=== PATIENT | female | born 1995 ===

== ENCOUNTER 2022-07-28 12:05 | Emergency (ER) | payer OTHER ==
[2022-07-28 12:22] LABS: BASOPHILS % (AUTO) 0.4 %; EOSINOPHILS % (AUTO) 0.3 %; HCT - HEMATOCRIT 41.7 % (37.0-47.0); HGB - HEMOGLOBIN 13.5 g/dL (12.0-16.0); LYMPHOCYTES # (AUTO) 2.1 10^3/uL (1.5-3.5); LYMPHOCYTES % (AUTO) 30.8 %; MEAN CORPUSCULAR HEMOGLOBIN 29.7 pg (27.0-31.0); MEAN CORPUSCULAR HGB CONC 32.4 g/dL (32.0-36.0); MEAN CORPUSCULAR VOLUME 91.9 fL (81.0-99.0); MEAN PLATELET VOLUME 10.5 fL (7.9-10.8); MONOCYTES # (AUTO) 0.5 10^3/uL (0.0-1.0); MONOCYTES % (AUTO) 7.2 %; NEUTROPHILS # (AUTO) 4.2 10^3/uL (1.5-6.6); NEUTROPHILS % (AUTO) 61.2 %; PLT - PLATELET COUNT 236 10^3/uL (130-450); RED BLOOD COUNT 4.54 10^6/uL (4.20-5.40); RED CELL DISTRIBUTION WIDTH 11.7 % (12.0-15.0); WHITE BLOOD COUNT 6.9 x10^3/uL (4.8-10.8)
[2022-07-28 12:27] LABS: BILIRUBIN,URINE NEGATIVE (NEGATIVE); GLUCOSE, URINE (UA) NEGATIVE (NEGATIVE); KETONES,URINE (UA) NEGATIVE (NEGATIVE); LEUKOCYTE ESTERASE, URINE NEGATIVE (NEGATIVE); NITRITE,URINE NEGATIVE (NEGATIVE); OCCULT BLOOD,URINE NEGATIVE (NEGATIVE); PROTEIN,URINE NEGATIVE (NEGATIVE); UROBILINOGEN,URINE 0.2 (NORMAL) E.U./dL (NORMAL)
[2022-07-28 12:29] LABS: CLARITY,URINE CLEAR (CLEAR); HCG UR QUAL NEGATIVE
[2022-07-28 12:43] LABS: ALBUMIN 4.7 g/dL (3.2-5.5); ALBUMIN/GLOBULIN RATIO 1.6 (1.0-2.2); BILIRUBIN,TOTAL 0.6 mg/dL (0.2-1.0); CALCIUM 9.6 mg/dL (8.5-10.3); CREATININE 0.9 mg/dL (0.4-1.0); POTASSIUM 3.5 mmol/L (3.5-5.0); TOTAL PROTEIN 7.7 g/dL (6.7-8.2)
--- NOTE | 2022-07-28 12:47 | ED Physician Documentation ---
PD HPI ABD PAIN - Stated complaint Stated Complaint: RIGHT SIDE PX - Chief complaint Chief Complaint: Abd Pain - History obtained from History obtained from: Patient - Additional information Additional information: 27-year-old woman with no history of abdominal surgeries presents with about 2 days of twitching in her right upper quadrant that is not necessarily painful. She has specific worries about her gallbladder, pancreas, and liver. She is not nauseous. No fevers or chills. No history of abdominal surgeries. She does note that she changed her diet significantly about a week ago going to a mostly plant and fish based diet because of high cholesterol. PD PAST MEDICAL HISTORY - Present Medications Home Medications: Ambulatory Orders Medication Instructions Recorded Confirmed No Known Home Medications 07/28/22 07/28/22 - Allergies Allergies/Adverse Reactions: Allergies Allergy/AdvReac Type Severity Reaction Status Date / Time No Known Drug Allergies Allergy Verified 07/28/22 12:13 PD ED PE NORMAL - Vitals Vital signs reviewed: Yes - General General: Alert and oriented X 3, No acute distress - HEENT HEENT: PERRL, EOMI - Abdomen Abdomen: Normal bowel sounds, Soft, Non tender, Other (No tenderness including to deep palpation in the both right upper and lower quadrants.) - Back Back: No CVA TTP, No spinal TTP - Derm Derm: Normal color, Warm and dry - Neuro Neuro: Alert and oriented X 3, Normal speech Results - Vitals Vitals: Vital Signs - 24 hr 07/28/22 07/28/22 07/28/22 12:10 12:13 14:13 Temperature 36.4 C L 36.6 C Heart Rate 102 H 67 80 Respiratory 15 16 16 Rate Blood Pressure 156/88 H 167/62 H 138/83 H O2 Saturation 100 100 100 Oxygen O2 Source Room air - Labs Labs: Laboratory Tests 07/28/22 07/28/22 07/28/22 12:18 12:18 12:20 WBC 6.9 RBC 4.54 Hgb 13.5 Hct 41.7 MCV 91.9 MCH 29.7 MCHC 32.4 RDW 11.7 L Plt Count 236 MPV 10.5 Neut # (Auto) 4.2 Lymph # (Auto) 2.1 Nelson # (Auto) 0.5 Eos # (Auto) 0.0 Baso # (Auto) 0.0 Absolute Nucleated RBC 0.00 Nucleated RBC % 0.0 Sodium 140 Potassium 3.5 Chloride 104 Carbon Dioxide 26 Anion Gap 10.0 BUN 7 Creatinine 0.9 Estimated GFR (MDRD) 75 L Glucose 113 H Calcium 9.6 Total Bilirubin 0.6 AST 18 ALT 12 Alkaline Phosphatase 46 Total Protein 7.7 Albumin 4.7 Globulin 3.0 Albumin/Globulin Ratio 1.6 Lipase 32 Urine Color YELLOW Urine Clarity CLEAR Urine pH 7.0 Ur Specific [place] 1.010 Urine Protein NEGATIVE Urine Glucose (UA) NEGATIVE Urine Ketones NEGATIVE Urine Occult Blood NEGATIVE Urine Nitrite NEGATIVE Urine Bilirubin NEGATIVE Urine Urobilinogen 0.2 (NORMAL) Ur Leukocyte Esterase NEGATIVE Ur Microscopic Review NOT INDICATED Urine Culture Comments NOT INDICATED Urine HCG, Qual NEGATIVE - Rads (name of study) Right upper quadrant ultrasound was unremarkable with the exception of a possible nonobstructing 3 mm nephrolith Relevant Findings:: Final report received, EMP independent interpretation of test PD Medical Decision Making - ED course ED course: 27-year-old woman presents with odd right upper quadrant pain with normal exam. CBC reviewed and normal. CMP reviewed and normal. Lipase negative. Right upper quadrant ultrasound with probable nephroliths but otherwise negative. Declined pain medication. Departure - Departure Disposition: 01 Home, Self Care Clinical Impression: Right upper quadrant pain Condition: Good Record reviewed to determine appropriate education?: Yes Instructions: ED Abdominal Pain Female Non-Specific Abdominal Pain Comments: Your liver enzymes, pancreatic enzymes, and ultrasound are negative with the exception of a possible stone within the right kidney. You are not passing it so should not cause pain at this time. Call your doctor to arrange a follow-up appointment, make the next available appointment. In the interim, return anytime if worse or if new symptoms develop. Discharge Date/Time: 07/28/22 15:16
[2022-07-28 15:16] VITALS: BP 138/83
--- NOTE | 2022-07-28 15:46 | Ultrasound Report ---
PROCEDURE: Abdomen Limited INDICATIONS: RUQ pain TECHNIQUE: Real-time scanning was performed of the abdominal and retroperitoneal organs, with image documentatio n. COMPARISON: None. FINDINGS: Liver: Liver is normal in size and homogeneous in echotexture. Gallbladder: Gallbladder is nondistended. No stones or sludge. No gallbladder wall thickening. No per icholecystic fluid. Negative sonographic Helms sign. Biliary ducts: Intrahepatic bile ducts are non-dilated. Extrahepatic bile duct caliber measures 4 m m. Normal is 6-7 mm or less in diameter, or 10 mm or less post-cholecystectomy. Pancreas: Visualized portions of the pancreas are sonographically normal. Spleen: Spleen is normal in size and homogeneous in echotexture. Right kidney: Right kidney measures 11.1 cm long. No hydronephrosis. Probable nonobstructing right kidney stone measuring 0.3 cm. IVC: Intrahepatic inferior vena cava is patent. Miscellaneous: No free abdominal fluid. IMPRESSION: 1. No acute cholecystitis. No gallstones. 2. Suspect small nonobstructing right kidney stone measuring 0.3 cm. No hydronephrosis. Reviewed by: Christopher Cannon MD on 07/28/2022 3:45 PM PST Approved by: Christopher Cannon MD on 07/28/2022 3:45 PM PST Station ID: [id number]
== END 2022-07-28 15:16 | disposition home or self-care (01) ==
LOC: ED 12:05
DX: R10.11 Right upper quadrant pain (principal)
CPT/HCPCS: 36415; 80053; 81001; 81003; 81025; 83690; 85025; 87086; 99283; 99284

== ENCOUNTER 2022-10-10 12:47 | Outpatient (CLI) | payer OTHER ==
--- NOTE | 2022-10-10 17:57 | Ultrasound Report ---
PROCEDURE: Head or Neck Soft Tissue INDICATIONS: THYROID NODULE TECHNIQUE: Real-time scanning was performed of the thyroid gland, with image documentation. COMPARISON: None FINDINGS: Right: Thyroid lobe measures 4.4 x 1.5 x 1.4 cm, and is homogeneous in echotexture. Left: Thyroid lobe measures 4.9 x 1.1 x 1.5 cm, and is homogenous in echotexture. Isthmus: 4 mm thick. Nodule number: 1 Location: Right lobe Size: 0.6 x 0.3 x 0.4 cm. Composition: Solid (2 points). Echogenicity: Isoechoic (1 point). Shape: wider than tall. Margins: Smooth (0 points). Echogenic foci: Macrocalcification (1 point). Total points: 4 ACR TI-RADS category: Moderately suspicious. IMPRESSION: 6 mm maximum diameter single thyroid nodule, moderately suspicious by imaging criteria. Based on the recommendations below, no further routine follow-up is required. ACR TI-RADS definitions and recommendations: TI-RADS 1 (benign): 0 points. FNA not needed. TI-RADS 2 (not suspicious): 2 points. FNA not needed. TI-RADS 3 (mildly suspicious): 3 points. "FNA if 2.5 cm or larger, follow up if 1.5 cm or larger (at 1, 3, and 5 years). TI-RADS 4 (moderately suspicious): 4-6 points. "FNA if 1.5 cm or larger, follow up if 1 cm or larger (at 1, 2, 3, and 5 years). TI-RADS 5 (highly suspicious): 7 points or more. "FNA if 1 cm or larger, follow up if 0.5 cm or larger (every year for 5 years). Reviewed by: Carlos Piedra MD on 10/10/2022 5:56 PM PDT Approved by: Carlos Piedra MD on 10/10/2022 5:56 PM PDT Station ID: [id number]
== END 2022-10-10 12:48 | disposition home or self-care (01) ==
LOC: DI 12:47
PROVIDERS: ATTEND Nurse Practitioner Primary Care
DX: E04.1 Nontoxic single thyroid nodule (principal)

== ENCOUNTER 2023-03-22 12:34 | Outpatient (CLI) | payer OTHER ==
--- NOTE | 2023-03-22 14:20 | Ultrasound Report ---
PROCEDURE: Head or Neck Soft Tissue INDICATIONS: MASS LEFT NECK TECHNIQUE: Real-time scanning was performed of the thyroid gland, with image documentation. COMPARISON: None FINDINGS: Palpable abnormalities noted by the patient in the left and right posterior neck were evaluated with grayscale and Doppler ultrasound imaging. On the left there is a 1.0 x 0.3 x 1.2 cm normal-appearing lymph node. On the right there is a 0.8 x 0.2 x 0.9 cm normal-appearing lymph node. IMPRESSION: The palpable abnormalities correspond with normal-appearing lymph nodes. If there is any increase in size in the future recommend repeat ultrasound. ACR TI-RADS definitions and recommendations: TI-RADS 1 (benign): 0 points. FNA not needed. TI-RADS 2 (not suspicious): 2 points. FNA not needed. TI-RADS 3 (mildly suspicious): 3 points. "FNA if 2.5 cm or larger, follow up if 1.5 cm or larger (at 1, 3, and 5 years). TI-RADS 4 (moderately suspicious): 4-6 points. "FNA if 1.5 cm or larger, follow up if 1 cm or larger (at 1, 2, 3, and 5 years). TI-RADS 5 (highly suspicious): 7 points or more. "FNA if 1 cm or larger, follow up if 0.5 cm or larger (every year for 5 years). Reviewed by: Tony Rios on 03/22/2023 2:19 PM PDT Approved by: Tony Rios on 03/22/2023 2:19 PM PDT Station ID: [id number]
== END 2023-03-22 12:35 | disposition home or self-care (01) ==
LOC: DI 12:34
PROVIDERS: ATTEND Nurse Practitioner Primary Care
DX: R22.1 Localized swelling, mass and lump, neck (principal)

== ENCOUNTER 2023-12-05 03:05 | Emergency (ER) | payer OTHER ==
--- NOTE | 2023-12-05 03:13 | ED Physician Documentation ---
PD HPI UPPER EXT INJURY - Stated complaint Stated Complaint: R HAND FINGER LAC - Chief complaint Chief Complaint: Ext Problem - History obtained from History obtained from: Patient - Additonal information Additional information: HPI from patient. Patient complains of pain, swelling of her right middle finger. Two days ago, she sustained a laceration to the finger when rummaging through her "junk dra del real", making accidental contact with a sharp object that was within the contents of the drawer. She did not think that the laceration needed attention at that time, but over the past 24 hours or so, the area around the laceration has become increasingly swollen, red, and painful and the signs and symptoms have spread to the rest of the right middle finger, though not beyond (no palm are involvement nor involvement of the adjacent fingers). Pain is exacerbated with palpation, movement of the finger. She denies numbness, weakness. She denies fever. She says she is up-to-date on tetanus immunization. Patient is right- hand dominant. PD PAST MEDICAL HISTORY - Past Medical History Past Medical History: No - Past Surgical History Past Surgical History: No - Present Medications Home Medications: Ambulatory Orders Medication Instructions Recorded Confirmed Doxycycline [Vibramycin] 100 mg PO BID #7 tablet 12/05/23 Oxycodone HCl/Acetaminophen 1 - 2 each PO Q6H PRN #14 tablet 12/05/23 [Percocet 5-325 mg Tablet] - Allergies Allergies/Adverse Reactions: Allergies Allergy/AdvReac Type Severity Reaction Status Date / Time No Known Drug Allergies Allergy Verified 12/05/23 03:12 - Social History Does the pt smoke?: No Smoking Status: Never smoker - Immunizations Immunizations are current?: Yes PD ED PE NORMAL - Vitals Vital signs reviewed: Yes - General General: Alert and oriented X 3, No acute distress, Well developed/nourished PD ED PE EXPANDED - Extremities MELISSA UE/Hands Visual: 1 - laceration (1 cm laceration with approximated wound edges (no gapping)) 2 - rash, swelling (circumferential swelling, faint erythema (no sharp margins). ROM intact (both flexion and extension), although increased pain with either. No tenderness along flexor tendon sheath. no fluctuance nor discharge at/around the laceration) Results - Vitals Vitals: Vital Signs - 24 hr 12/05/23 12/05/23 03:09 03:55 Temperature 36.4 C L Heart Rate 96 88 Respiratory 18 16 Rate Blood Pressure 131/83 H 128/81 H O2 Saturation 98 98 Oxygen O2 Source Room air PD Medical Decision Making - ED course Complexity details: considered differential, d/w patient ED course: Presents with right middle finger infection associated with a small laceration that was sustained 2 days ago. Although swollen and erythematous, she does have intact range of motion in both flexion and extension, there is no tenderness to palpation along the flexor tendon sheath, and the swelling is not severe (not "sausage finger" swelling). She is given 600 mg p.o. ibuprofen and provided take-home pack of Percocet (patient is driving home). She is given 100 mg of doxycycline p.o. as well as 1 g ceftriaxone IM. I have electronically submitted prescriptions for Percocet and a 1-week course of doxycycline to the [facility] pharmacy in [place]. Return precautions were very carefully reviewed. I instructed her to contact her primary care provider this morning when their office is next open to arrange for a wound-check appointment. Ideally, she should be reevaluated within 24 to 48 hours. I instructed her to return to the emergency department if she cannot arrange for follow-up in that timeframe (for wound check) unless she feels that the signs and symptoms have leveled off or are improving. Departure - Departure Disposition: 01 Home, Self Care Clinical Impression: Finger infection Condition: Good Instructions: ED Laceration Infec Not Sutrd Follow-Up: [facility] [Provider Group] Prescriptions: Oxycodone HCl/Acetaminophen [Percocet 5-325 mg Tablet] 1 - 2 each PO Q6H PRN #14 tablet PRN Reason: pain Doxycycline [Vibramycin] 100 mg PO BID #7 tablet Comments: It appears that the laceration to your finger has become infected. For the infection, you were given first dose of an antibiotic (doxycycline) in the emergency department, and I have electronically submitted a prescription for a 7-day course of this antibiotic to the [facility] pharmacy in [place]. I have also submitted a prescription for Percocet (narcotic/opiate pain medication). In addition to the oral antibiotic in the emergency department, you were given a one-time injection of a different antibiotic (ceftriaxone); the purpose of this is to get a strong antibiotic into your bloodstream quickly so as to start fighting the infection faster than just the oral antibiotic alone. As we discussed, I recommend that you contact your primary care provider when the office opens this morning to arrange for a follow-up appointment for the purposes of rechecking the infection. Ideally, the infection/finger should be rechecked within the next 24 to 48 hours if this can be arranged. I am prescribing a short course of narcotic pain medication for you. These are potentially dangerous and addictive medications that should be used carefully. These medications may constipate you. Take an [id number] stool softener (docusate) twice daily with plenty of water while taking these medications. If you go 24 hours without a bowel movement, take [id number] miralax, per package instructions. Do not drink or drive while taking these medications. If you received narcotic or sedating medications while in the emergency department, do not drive for 24 hours. Store this medication in a safe, secure place and out of reach of children. It is a violation of federal law to give or sell this medication to another person or to use in a manner other than prescribed. The ED will not refill narcotic prescriptions, including prescriptions lost or stolen. To dispose of unwanted medications: 1. [facility] at [address] in [place] has a medication drop box. They accept prescription medications (in pill form) Sunday through Sunday 9:00 a.m. to 5:00 p.m. 2. The [facility] [employer] accepts prescription medications (in pill form only) for disposal year round. Call for more information. 3. Contact the [facility] for the next [facility] sponsored prescription drug collection event. , [phone], or [phone]; Discharge Date/Time: 12/05/23 03:55
[2023-12-05 03:14] VITALS: O2SAT 98
[2023-12-05] MEDS: BACITRACIN ZINC OINT 1 PACKET TOP STA (03:45)
[2023-12-05] MEDS: IBUPROFEN 600 MG TABLET PO STA (03:45)
[2023-12-05] MEDS: DOXYCYCLINE 100 MG TABLET PO STA (03:45)
[2023-12-05] MEDS: LIDOCAINE 1% 2 ML VIAL MC ONE (03:45)
[2023-12-05] MEDS: cefTRIAXone 1 GM VIAL IM STA (03:45)
[2023-12-05] MEDS: oxyCODONE/ACET 5/325 Prepack 4 PO STA (03:46)
[2023-12-05 03:58] VITALS: BP 128/81
== END 2023-12-05 03:55 | disposition home or self-care (01) ==
LOC: ED 03:05
DX: S61.212A Laceration without foreign body of right middle finger without damage to nail, initial encounter (principal); W26.8XXA Contact with other sharp object(s), not elsewhere classified, initial encounter; L08.9 Local infection of the skin and subcutaneous tissue, unspecified
CPT/HCPCS: 96372; 99283; A9270